=== PATIENT | female | born 1980 | race Caucasian/White ===

== ENCOUNTER 2016-09-13 02:42 | Emergency (ER) | payer BC, OTHER ==
[~2016-09-13] VITALS: Ht 160 cm; Wt 70.9 kg
[~2016-09-13 02:42] MED LIST: SUMA6KIT INJ; TOPI50TA16 PO
[2016-09-13 02:47] VITALS: Ht 160 cm; Wt 70.9 kg
[2016-09-13] MEDS ORDERED: RANITIDINE HCL 50 MG/100 ML D5W IV STA (03:00)
[2016-09-13] MEDS ORDERED: DiphenhydrAMINE HCL 50 MG/ML VIAL IV STA (03:00)
[2016-09-13] MEDS ORDERED: EPINEPHRINE ADULT AUTO-INJECT 0.3 MG SYR IM ONE (03:00)
[2016-09-13] MEDS ORDERED: DEXAMETHASONE SOD INJ 10 MG/ML VIAL IV ONE (03:00)
--- NOTE | 2016-09-13 04:10 | EMERGENCY ROOM VISIT NOTE ---
History First contact with patient: 02:56 Chief Complaint: ALLERGIC REACTION Stated Complaint: RASH ON BACK AND ARMS-VERY ITCHY Nursing Triage Summary: Pt started off with what looked like bug bites on sunday, went to PCP for itchiness and was given prednisone. Yesterday rash worsened, developed hives over night. Pt denies any new foods/items used. Denies any SOB. History of Present Illness The patient is a 36 year old female who presents to the Emergency Room with complaints of allergic reaction for the past day. Patient saw the PCP yesterday and started on a Medrol taper pack. No Zantac or Benadryl. No new foods soaps or detergents. No history of similar symptoms in the past. Patient denies chest pain, dyspnea, facial swelling, throat tightness, abdominal pain, vomiting, diarrhea. She complains of an itchy rash throughout her body. Review of Systems See HPI for pertinent positives & negatives. A total of 10 systems reviewed and were otherwise negative. Past Medical/Surgical History None Social History Smoking Status: Former Smoker Drug Use: none Marital Status: Housing Status: lives with family Occupation Status: employed Current/Historical Medications Scheduled Topiramate (Topamax), 50 MG PO QPM Miscellaneous Medications Sumatriptan Succinate (Imitrex Statdose) Physical Exam Vital Signs Date Time Temp Pulse Resp B/P (MAP) Pulse Ox O2 Delivery O2 Flow Rate FiO2 09/13/16 03:24 70 09/13/16 03:23 Room Air 09/13/16 03:23 Room Air 09/13/16 02:47 36.7 73 16 108/66 98 Room Air Physical Exam VITALS: Vitals are noted on the nurse's note and reviewed by myself. Vital signs stable. GENERAL: Pleasant female, in no acute distress, nondiaphoretic, well-developed well-nourished. SKIN: Diffuse erythematous blanchable dermatitis most consistent with allergic reaction The skin was without edema, or bruising. There is no tenting of the skin. Capillary reflex less than 2 seconds. HEAD: Normocephalic atraumatic. EARS: External auditory canals clear, tympanic membranes pearly peoples without erythema or effusion bilaterally. EYES: Pupils equal round and reactive to light and accommodation. Conjunctivae without injection, sclerae without icterus. Extraocular movements intact. NOSE: Patent, turbinates without inflammation or discharge. MOUTH: Mucous membranes moist. Pharynx without erythema or exudate. Uvula midline. Airway patent. Tongue does not deviate. NECK: Supple without nuchal rigidity. No lymphadenopathy. No thyromegaly. Cervical spine is nontender. No JVD. HEART: Regular rate and rhythm without murmurs gallops or rubs. LUNGS: Clear to auscultation bilaterally without wheezes, rales or rhonchi. No dullness to percussion. No retractions or accessory muscle use. ABDOMEN: Positive bowel sounds x 4. Normal tympanic percussion. Soft, nontender, without masses or organomegaly. Nicole sign negative. No guarding or rebound tenderness. MUSCULOSKELETAL: No muscle atrophy, erythema, or edema noted. NEURO: Patient was alert and oriented to person place and time. Normal sensation to light and sharp touch. No focal neurological deficits. Medical Decision & Procedures Medications Administered Medications (Trade) Dose Ordered Sig/Okle Route Start Time Stop Time Status Last Admin Dose Admin Dexamethasone Sodium Phosphate (Decadron Inj) 10 mg NOW ONCE IV 09/13/16 03:00 09/13/16 03:01 DC 09/13/16 03:13 10 MG Ranitidine HCl (zANTac IV) 50 mg NOW STAT IV 09/13/16 03:00 09/13/16 03:01 DC 09/13/16 03:14 50 MG Diphenhydramine HCl (Benadryl Inj) 50 mg NOW STAT IV 09/13/16 03:00 09/13/16 03:01 DC 09/13/16 03:14 50 MG ED Course Prior records/ancillary studies reviewed. Triage Nursing notes reviewed. The patient's history was concerning for possible allergic reaction. Differential diagnosis: Etiologies such as allergic reaction, anaphylaxis, urticaria, Otero-Florin syndrome, toxic epidermal necrolysis, erythema multiforme, cellulitis, as well as others were entertained. Physical examination: As above. ER treatment provided: Continuous cardiac monitoring Benadryl 50 mg IV Zantac 50 mg IV Decadron 10 mg IV On reassessment the patient felt better. Diagnostic interpretation by me: Deferred It appears the patient had an allergic reaction. The above treatment did well to reverse the symptoms. After prolonged monitoring and frequent reassessments the patient did very well and symptoms resolved. The patient was counseled on the spectrum of this disease process and told to avoid potential triggers. I gave my usual and customary discussion regarding this issue. By the evaluation outlined above emergent etiologies such as recurring anaphylaxis, anaphylatic shock, airway compromise, Otero-Florin syndrome, toxic epidermal necrolysis, erythema multiforme, infectious etiologies, as well as others were deemed relatively unlikely. The pt informed about the findings as listed above. All questions were answered and pleased with the treatment. Return instructions were outlined and the patient was discharged in stable condition. Outpatient prescription management: EpiPen Referral: The patient was referred back to primary care physician for follow-up in 2-3 days for a recheck of the current condition. Medical Decision As above Medication Reconcilliation Current Medication List: was personally reviewed by me Blood Pressure Screening Patient's blood pressure: Normal blood pressure Impression Primary Impression: Allergic reaction Departure Information Dispostion Home / Self-Care Condition GOOD Referrals Gabriela Ulloa C.R.N.P (PCP) Patient Instructions [facility] Additional Instructions DO NOT drive, drink alcohol, operate machinery, or perform dangerous activities today. You were given medications in the ER that can affect your ability to safely function or operate a vehicle. Epi-Pen: Use one injection as instructed for severe allergic reactions associated with shortness of breath, difficulty breathing, or throat or tongue swelling. If you use this injection call 911 or proceed immediately to the nearest Emergency Room. Prednisone as directed by the PCP yesterday. You can also take a daily Claritin. Diphenhydramine(Benadryl) 25mg: use 25 to 50 mg every six hours for swelling, itching, or hives. This medication is sedating and will cause drowsiness. Avoid alcohol, operating machinery or dangerous equipment, working on ladders or roofs, DRIVING, or situations where being under the influence may be dangerous. Zantac 75: Take two pills twice a day along with Benadryl as needed for swelling , itching, or hives. Most people know this for its affect on the stomach, but it also acts similar to, but less potent than Benadryl for allergic reactions. Both the Benadryl and the Zantac are available [id number]. Continue current medications. Return to the emergency department for worsening of your rash, swelling of your face, lips, tongue, or throat, difficulty breathing, vomiting, or as needed. Follow-up with your primary care physician in 2 to 3 days for a recheck of your current condition. Problem Qualifiers Primary Impression: Allergic reaction Encounter type: initial encounter Qualified Codes: T78.40XA - Allergy, unspecified, initial encounter
[2016-09-13 04:39] VITALS: BP 101/55; PULSE 60; TEMP 36.7; O2SAT 96
== END 2016-09-13 04:39 | disposition home or self-care (01) ==
LOC: C.EDB 02:43
DX: T78.40XA Allergy, unspecified, initial encounter (principal); X58.XXXA Exposure to other specified factors, initial encounter; Z87.891 Personal history of nicotine dependence; Z79.899 Other long term (current) drug therapy